=== PATIENT | male | born 2000 | race Two or more races ===

== ENCOUNTER 2025-02-08 23:27 | Emergency (ER) | payer OTHER ==
[~2025-02-08] VITALS: Ht 182.9 cm; Wt 73.5 kg
[2025-02-09] MEDS ORDERED: TRIAMCINOLONE ACETONIDE 40 MG/ML VIAL IM ONE (00:45)
[2025-02-09] MEDS ORDERED: KETOROLAC TROMETHAMINE 60 MG VIAL IM ONE (00:45)
== END 2025-02-09 00:57 | disposition home or self-care (01) ==
LOC: ER 23:27
DX: M94.0 Chondrocostal junction syndrome [Tietze] (principal)